=== PATIENT | male | born 1950 | race Two or more races ===

== ENCOUNTER 2021-08-01 13:35 | Emergency (ER) | payer SELFPAY ==
[~2021-08-01] VITALS: Ht 170.2 cm; Wt 86.2 kg
[2021-08-01] MEDS ORDERED: HYDROmorphone HCL 2 MG/ML VL IV ONE (14:00)
[2021-08-01] MEDS ORDERED: ONDANSETRON HCL 4 MG/2 ML VIAL IV ONE (14:00)
[2021-08-01 15:30] VITALS: BP 125/79
== END 2021-08-01 16:31 | disposition home or self-care (01) ==
LOC: ER 13:35 → EDBD 13:35 → ER 16:31
DX: M54.32 Sciatica, left side (principal); E11.9 Type 2 diabetes mellitus without complications; I10 Essential (primary) hypertension; Z90.49 Acquired absence of other specified parts of digestive tract
CPT/HCPCS: 72131; 72192